=== PATIENT | male | born 1985 | race African-American/Black ===

== ENCOUNTER 2017-02-06 23:14 | Emergency (ER) | payer OTHER, BC ==
[~2017-02-06] VITALS: Ht 160 cm; Wt 68.9 kg
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
[~2017-02-06 23:14] MED LIST: FLEXERIL10 MG PO; NO MEDICATIONS; VOLTAREN50 MG PO
== END 2017-02-07 02:00 | disposition home or self-care (01) ==
LOC: CED 23:14 → CFTX 23:59 → CED 23:59
DX: S16.1XXA Strain of muscle, fascia and tendon at neck level, initial encounter (principal); S39.012A Strain of muscle, fascia and tendon of lower back, initial encounter; F17.200 Nicotine dependence, unspecified, uncomplicated; V49.00XA Driver injured in collision with unspecified motor vehicles in nontraffic accident, initial encounter; Y92.410 Unspecified street and highway as the place of occurrence of the external cause
CPT/HCPCS: 72040; 72100; 96372; 99284; J1885